=== PATIENT | female | born 1965 | race Caucasian/White ===

== ENCOUNTER 2020-08-12 15:56 | Outpatient (CLI) | payer OTHER, SELFPAY ==
--- NOTE | ~2020-08-12 | MM_ITS ---
EXAMINATION: MM screening [facility] w vida HISTORY: Screening mammogram TECHNIQUE: Craniocaudal and mediolateral oblique 3-D tomosynthesis images were obtained and synthetic 2-D images were generated. CAD analysis was submitted and interpreted. COMPARISON: 07/31/2019, 06/30/2018, 07/12/2017 bilateral digital screening mammogram examinations BREAST PARENCHYMAL COMPOSITION: There are scattered areas of fibroglandular density. FINDINGS: Status post left partial mastectomy for breast cancer, with stable asymmetric volume loss, scarring and retraction of the left breast. There is no evidence of suspicious mass, calcification, o r interval architectural distortion to suggest malignancy in either breast. There has been no suspici ous interval change. IMPRESSION: 1. No mammographic evidence of malignancy. 2. Recommend routine screening mammography in one year. BI-RADS Category 2: Benign finding(s). Reviewed, dictated and finalized at location A. SEALER
== END 2020-08-12 15:57 | disposition home or self-care (01) ==
LOC: ANHIMG 15:59
PROVIDERS: PCP Internal Medicine Medical Oncology; Visit Provider Internal Medicine Medical Oncology
DX: Z12.31 Encounter for screening mammogram for malignant neoplasm of breast (principal)
CPT/HCPCS: 77063; 77067

== ENCOUNTER 2021-04-08 08:25 | Outpatient (CLI) | payer OTHER, SELFPAY ==
--- NOTE | ~2021-04-08 | US_ITS ---
US right upper quadrant INDICATION: Elevated liver enzymes PROCEDURE: Realtime right upper abdominal ultrasound. COMPARISON: No prior studies for comparison. FINDINGS: The pancreas is normal without focal mass or pancreatic ductal dilation. Liver echotexture is increased, consistent with fatty infiltration. There is normal directional flow in the portal ve in. There are gallstones. Common bile duct measures 3 mm. No sonographic Sharma's sign. There is a righ t renal cyst measuring 2 cm. IMPRESSION: 1: Cholelithiasis. 2: Hepatic steatosis. Reviewed, dictated and finalized at location A.
== END 2021-04-08 08:26 | disposition home or self-care (01) ==
LOC: ANHIMG 08:29
PROVIDERS: PCP Internal Medicine Gastroenterology; Visit Provider Internal Medicine Gastroenterology
DX: C50.012 Malignant neoplasm of nipple and areola, left female breast (principal); K80.20 Calculus of gallbladder without cholecystitis without obstruction; K76.0 Fatty (change of) liver, not elsewhere classified
CPT/HCPCS: 76705

== ENCOUNTER 2021-09-07 10:24 | Outpatient (CLI) | payer OTHER, SELFPAY ==
--- NOTE | ~2021-09-07 | MM_ITS ---
EXAMINATION: MM screening [facility] BI w vida HISTORY: Screening TECHNIQUE: Craniocaudal and mediolateral oblique 3-D tomosynthesis images were obtained and synthetic 2-D images were generated. CAD analysis was submitted and interpreted. COMPARISON: Comparison to multiple prior studies sequentially, with oldest reviewed study dated 05/25. BREAST PARENCHYMAL COMPOSITION: Breast composed of scattered areas of fibroglandular density. FINDINGS: Stable postsurgical changes in the upper outer quadrant of the left breast. There is no braden dence of suspicious mass, calcification, or architectural distortion to suggest malignancy in either breast. There has been no suspicious interval change. IMPRESSION: 1. No mammographic evidence of malignancy. 2. Recommend routine screening mammography in one year. BI-RADS Category 2: Benign finding(s). Reviewed, dictated and finalized at location A. RMATION ASSURANCE SPECIALIST
== END 2021-09-07 10:25 | disposition home or self-care (01) ==
LOC: ANHIMG 10:27
PROVIDERS: PCP Internal Medicine Medical Oncology; Visit Provider Internal Medicine Medical Oncology
DX: Z12.31 Encounter for screening mammogram for malignant neoplasm of breast (principal)
CPT/HCPCS: 77063; 77067

== ENCOUNTER 2022-09-08 14:47 | Outpatient (CLI) | payer OTHER, SELFPAY ==
--- NOTE | ~2022-09-08 | MM_ITS ---
EXAMINATION: MM screening [facility] w vida HISTORY: Screening mammogram TECHNIQUE: Craniocaudal and mediolateral oblique 3-D tomosynthesis images were obtained and synthetic 2-D images were generated. CAD analysis was submitted and interpreted. COMPARISON: September 07, 2021, August 12, 2020, July 31, 2019 bilateral screening mammogram examin ations BREAST PARENCHYMAL COMPOSITION: There are scattered areas of fibroglandular density. FINDINGS: Status post left partial mastectomy for breast cancer with chronic stable architectural dis tortion and surgical clips in the posterior upper outer left breast, with volume loss of the left darius ast. There is a new asymmetric 4 mm opacity overlying the lower left subareolar area on craniocaudal view. Diagnostic left mammogram is recommended, with Otherwise there is no evidence of suspicious mass, calcification, or architectural distortion to sugg est malignancy in either breast. There has been no other suspicious interval change. IMPRESSION: 1. New asymmetric 4 mm opacity overlying lateral left subareolar area 2. Diagnostic left mammogram is recommended, with ultrasound if required BI-RADS Category 0: Incomplete: Needs additional imaging evaluation. Reviewed, dictated and finalized at location A. RT KILN BURNER
== END 2022-09-08 14:48 | disposition home or self-care (01) ==
PROVIDERS: PCP Internal Medicine Medical Oncology; Visit Provider Internal Medicine Medical Oncology
DX: Z12.31 Encounter for screening mammogram for malignant neoplasm of breast (principal); N64.89 Other specified disorders of breast
CPT/HCPCS: 77063; 77067

== ENCOUNTER 2022-09-14 13:19 | Outpatient (CLI) | payer OTHER, SELFPAY ==
--- NOTE | ~2022-09-14 | MM_ITS ---
EXAMINATION: MM diagnostic [facility] w vida HISTORY: New asymmetric 4 mm opacity overlying lateral left subareolar area was reported on September 08, 2022 screening mammogram examination TECHNIQUE: Additional 3-D tomosynthesis images of the left breast were performed and synthetic 2-D im ages were generated. Rolled medial and rolled lateral craniocaudal views of left breast. CAD analysis was submitted and interpreted. COMPARISON: September 08, 2022screening mammogram views of left breast FINDINGS: The 4 mm opacity is suggested overlying the lateral left subareolar area on screening CC vi ew of September 08, 2022 is not reproduced on these supplemental coned compression or rolled medial an d rolled lateral craniocaudal views, consistent with composite shadowing of overlapping fibroglandula r density. IMPRESSION.: 1. Status post partial left mastectomy for breast cancer. No mammographic evidence of malignancy 2. Routine annual mammographic screening is recommended BI-RADS Category 2: Benign finding(s). Reviewed, dictated and finalized at location A. TECHNICIAN IMPRESSION.: 1. Status post partial left mastectomy for breast cancer. No mammographic evide nce of malignancy 2. Routine annual mammographic screening is recommended BI-RADS Category 2: Benign finding(s).
== END 2022-09-14 13:20 | disposition home or self-care (01) ==
DX: R92.8 Other abnormal and inconclusive findings on diagnostic imaging of breast (principal); Z98.890 Other specified postprocedural states
CPT/HCPCS: 77061; 77065; G0279

== ENCOUNTER 2023-11-23 07:45 | Outpatient (CLI) | payer BC, SELFPAY ==
--- NOTE | ~2023-11-23 | MM_ITS ---
EXAMINATION: MM screening [facility] BI w vida HISTORY: Screening TECHNIQUE: Craniocaudal and mediolateral oblique 3-D tomosynthesis images were obtained and synthetic 2-D images were generated. CAD analysis was submitted and interpreted. COMPARISON: Comparison to multiple prior studies sequentially, with oldest reviewed study dated 06/25. BREAST PARENCHYMAL COMPOSITION: There are scattered areas of fibroglandular density. FINDINGS: There is distortion in the upper outer quadrant of the left breast, consistent with previou s lumpectomy site for breast cancer. There is no evidence of suspicious mass, calcification, or archi tectural distortion to suggest malignancy in either breast. There has been no suspicious interval maxwell nge. IMPRESSION: 1. No mammographic evidence of malignancy. 2. Recommend routine screening mammography in one year. BI-RADS Category 2: Benign finding(s). Reviewed, dictated and finalized at location B.
== END 2023-11-23 07:46 | disposition home or self-care (01) ==
LOC: ANHIMG 07:47
PROVIDERS: PCP Family Medicine
DX: Z12.31 Encounter for screening mammogram for malignant neoplasm of breast (principal)
CPT/HCPCS: 77063; 77067